=== PATIENT | male | born 1990 | race Caucasian/White ===

== ENCOUNTER 2017-07-30 02:26 | Emergency (ER) | payer OTHER ==
[~2017-07-30] VITALS: Ht 185.4 cm; Wt 90.7 kg
[~2017-07-30 02:26] MED LIST: Cleocin HCl150 MG PO; Ultram50 MG PO
== END 2017-07-30 05:19 | disposition left against medical advice (07) ==
LOC: ER 02:26
DX: K04.7 Periapical abscess without sinus (principal); K02.9 Dental caries, unspecified; F17.210 Nicotine dependence, cigarettes, uncomplicated; Z88.0 Allergy status to penicillin; Z90.89 Acquired absence of other organs; Z79.2 Long term (current) use of antibiotics
CPT/HCPCS: 99282

== ENCOUNTER 2019-10-12 13:48 | Inpatient (IN) | payer OTHER ==
[~2019-10-12] VITALS: Ht 190.5 cm; Wt 90.7 kg
[2019-10-12 14:25] LABS: BASOPHILS ABSOLUTE AUTO 0.05 K/mm3 (0.00-0.23); BASOPHILS PERCENT AUTO 1 % (0-2); EOSINOPHILS ABSOLUTE AUTO 0.04 K/mm3 (0.00-0.68); EOSINOPHILS PERCENT AUTO 1 % (0-6); Hematocrit 50.7 % (37.0-53.0); Hemoglobin 17.6 g/dL (13.5-17.5); IMMATURE GRAN ABSOLUTE AUTO 0.01 K/mm3 (0.00-0.10); IMMATURE GRAN PERCENT AUTO 0 % (0-1); LYMPHOCYTES ABSOLUTE AUTO 1.97 K/mm3 (0.84-5.20); LYMPHOCYTES PERCENT AUTO 24 % (21-46); MONOCYTES ABSOLUTE AUTO 0.83 K/mm3 (0.16-1.47); MONOCYTES PERCENT AUTO 10 % (4-13); Mean Corpuscular HGB 31.5 pg (26.0-34.0); Mean Corpuscular HGB Conc 34.7 g/dL (31.5-36.5); Mean Corpuscular Volume 91 fL (80-100); Mean Platelet Volume 9.8 fL (9.1-12.4); NEUTROPHILS ABSOLUTE AUTO 5.37 K/mm3 (1.96-9.15); NEUTROPHILS PERCENT AUTO 65 % (41-73); Platelet Count 238 K/mm3 (150-400); RDW Coefficient Variation 13.2 % (11.7-14.2); RDW Standard Deviation 44.7 fL (35.1-46.3); Red Blood Cell Count 5.58 M/mm3 (4.30-5.90); White Blood Cell Count 8.27 K/mm3 (4.00-11.30)
[2019-10-12 14:50] LABS: Alanine Aminotransfer (ALT/SGP 254 U/L (12-78); Albumin, Blood 3.9 g/dL (3.4-5.0); Alk Phos 167 U/L (50-136); Anion Gap 8 mmol/L (6-16); Aspartate Aminotrans (AST/SGOT 151 U/L (12-37); Bilirubin, Total 0.3 mg/dL (0.1-1.0); Blood Urea Nitrogen 5 mg/dL (8-24); Bun/Creatinine Ratio 6.2 (12.0-20.0); CO2, Blood 22 mmol/L (21-32); Calcium, Blood 8.8 mg/dL (8.5-10.1); Chloride, Blood 110 mmol/L (98-108); Creatinine, Blood 0.81 mg/dL (0.60-1.20); Globulin, Blood 3.9 g/dL (2.2-4.0); Glomerular Filtration Rate >60 (60-); Glucose, Blood 101 mg/dL (70-99); Potassium, Blood 3.8 mmol/L (3.5-5.5); Sodium, Blood 140 mmol/L (136-145); Total Protein, Blood 7.8 g/dL (6.4-8.2)
--- NOTE | 2019-10-12 18:06 | NUR ---
REPORT RECIEVED FROM INDIO HOLDEN RN. PT ARRIVED TO PCU 1 VIA GURNEY AND WAS ABLE TO AMBULATE TO THE BED. PT IS LETHARGIC, BUT ORIENTED. PT STATES NOW THAT HE IS UP AND MOVING AROUND HIS PAIN HAS INCREASED TO 7/10. I TALKED WITH HIM ABOUT GETTING SETTLED IN AND I WOULD CALL THE MD IF HIS PAIN WAS STILL ELEVATED. HRR. LS CTA, BIOX WNL ON RA. BT HYPOACTIVE, ABD TENDER TO PALPATION.PPP. VS TAKEN, PT IS HYPERTENSIVE. PT ORIENTED TO ROOM AND CALL LIGHT. PT DENIES NEEDS AT THIS TIME. WILL CONTINUE TO MONITOR.
--- NOTE | 2019-10-12 19:10 | NUR ---
PT STATES HIS PAIN IS STILL HIGH. CALL PLACED TO MD, SEE NEW ORDERS. 1 MG DILAUDID GIVEN FOR 10/10 ABD PAIN. PT STATES, " YOU GUYS ALWAYS DO THIS TO ME...MAKE ME WAIT AND THEN MY PAIN GETS OUT OF CONTROL." I TALKED WITH HIM ABOUT ALL THE MEDICATIONS HE IS TAKING AND THE ALCOHOL THAT IS STILL IN HIS SYSTEM, WE ARE WORRIED ABOUT RESPIRATORY DEPRESSION. HE VERBALIZED UNDERSTANDING. PT DENIES OTHER NEEDS AT THIS TIME, CALL LIGHT IN REACH. WILL CONTINUE TO MONITOR.
--- NOTE | 2019-10-12 20:05 | NUR ---
ADAM LIVE BEDSIDE WITH PATIENT; VS TAKEN; ADAM LIVE STATED CAN GIVEN DOSE OF 2MG IV DILAUDID NOW. WILL START IV TORADOL SCHEDULED.
--- NOTE | 2019-10-12 20:28 | NUR ---
PATIENT REPORTS GOOD REULTS WITH 2MG IV DILAUDID. FROM 10 TO A 5; NOW WATCHING TV. VSS.
[2019-10-13 04:07] LABS: BASOPHILS ABSOLUTE AUTO 0.02 K/mm3 (0.00-0.23); BASOPHILS PERCENT AUTO 0 % (0-2); EOSINOPHILS ABSOLUTE AUTO 0.01 K/mm3 (0.00-0.68); EOSINOPHILS PERCENT AUTO 0 % (0-6); Hematocrit 53.6 % (37.0-53.0); IMMATURE GRAN ABSOLUTE AUTO 0.02 K/mm3 (0.00-0.10); IMMATURE GRAN PERCENT AUTO 0 % (0-1); LYMPHOCYTES ABSOLUTE AUTO 0.64 K/mm3 (0.84-5.20); LYMPHOCYTES PERCENT AUTO 7 % (21-46); MONOCYTES ABSOLUTE AUTO 0.75 K/mm3 (0.16-1.47); MONOCYTES PERCENT AUTO 8 % (4-13); Mean Corpuscular HGB Conc 33.6 g/dL (31.5-36.5); Mean Platelet Volume 10.2 fL (9.1-12.4); NEUTROPHILS ABSOLUTE AUTO 8.25 K/mm3 (1.96-9.15); NEUTROPHILS PERCENT AUTO 85 % (41-73); Platelet Count 168 K/mm3 (150-400); RDW Coefficient Variation 13.5 % (11.7-14.2); RDW Standard Deviation 47.8 fL (35.1-46.3); Red Blood Cell Count 5.62 M/mm3 (4.30-5.90); White Blood Cell Count 9.69 K/mm3 (4.00-11.30)
[2019-10-13 04:08] LABS: Mean Corpuscular Volume 95 fL (80-100)
[2019-10-13 04:28] LABS: Alanine Aminotransfer (ALT/SGP 197 U/L (12-78); Albumin, Blood 3.6 g/dL (3.4-5.0); Alk Phos 163 U/L (50-136); Anion Gap 7 mmol/L (6-16); Aspartate Aminotrans (AST/SGOT 87 U/L (12-37); Bilirubin, Total 0.8 mg/dL (0.1-1.0); Blood Urea Nitrogen 4 mg/dL (8-24); Bun/Creatinine Ratio 6.4 (12.0-20.0); CO2, Blood 23 mmol/L (21-32); Calcium, Blood 7.9 mg/dL (8.5-10.1); Chloride, Blood 109 mmol/L (98-108); Creatinine, Blood 0.63 mg/dL (0.60-1.20); Globulin, Blood 3.5 g/dL (2.2-4.0); Glomerular Filtration Rate >60 (60-); Glucose, Blood 90 mg/dL (70-99); Sodium, Blood 139 mmol/L (136-145); Total Protein, Blood 7.1 g/dL (6.4-8.2)
--- NOTE | 2019-10-13 05:51 | NUR ---
ASSUMED CARE OF PATIENT AT APPROXIMATELY 1900 FROM LOU Garvey RN. PATIENT ALERT AND ORIENTED X4; DROWSY AT TIMES. PATIENT REPORTS PAIN IN HIS ABDOMEN AND BACK; MEDICATED PER EMAR. CIWA 8 OR LESS. PATIENT IRRITABLE AT TIMES. ONE ASSIST OUT OF BED TO BATHROOM. PATIENT DENIES NUMBNESS, TINGLING, DIZZINESS OR NAUSEA. NSR/ST ON TELE; OXYGEN SATURATION ABOVE 90% ON ROOM AIR. NPO. PATIENT C/O OF WANTING WATER. PATIENT REPORTS HE HAS BEEN HOSPITALIZED IN [place] AND [place] AND HAS A "IV PAIN PUMP"; REPORTS HE HAS TAKEN "100 MG MORPHINE". IVF INFUSING PER ORDER. PATIENT CURRENTLY RESTING IN BED; CALL LIGHT IN REACH; BED IN LOWEST POSISTION; BED ALARM ON; WILL CONTINUE TO MONITOR AND ASSESS UNTIL END OF SHIFT.
--- NOTE | 2019-10-13 07:02 | NUR ---
Ankur was up to the bathroom, brushing his teeth and the pull over machine operator tech alerted us to his heart rate of 161 bpm. The pt is shaky, and anxious. Also c/o headache. Medicated for pain and CIWA
--- NOTE | 2019-10-13 09:40 | NUR ---
DR CALVERT WAS UPDATED THAT PT'S PAIN IS NOT WELL CONTROLLED WITH 2MG DIALUDID Q2 HOURS, AND IS DEMANDING MEDICATIONS MORE FREQUENTLY. DR CALVERT GAVE V/O FOR DILAUDID DOSE CHANGE TO 2-4MG DIALUDID Q4 HOURS. DR CALVERT MET WITH PT AND HAD A LONG DISCUSSION ABOUT HIS DRINKING AND DISEASE PROGRESSION. PT STS THAT HE HAS NO DESIRE TO "QUIT FOREVER, LIKE I WANT TO BE ABLE TO DRINK" AND STS THAT CURRENTLY HE IS NOT ABLE TO QUIT DRINKING HE LIVES WITH HIS PARENTS AND THEY DRINK. PT IS EDUCATED ABOUT MEDICATION CHANGE AND BECOMES VERBALLY AGGRESSIVE WITH STAFF. PT IS MEDICATED AND REPOSITIONED POST DIALUDID ADMINISTRATION AND PT STS "YOU DON'T KNOW WHAT YOU'RE DOING I DON'T NEED TO SET UP" PT HAS BRIEFLY HAD A DROP IN SPO2 WHILE LYING FLAT, PT REMINDED THAT THIS IS WHY HE WAS REPOSITIONED, PT CONTINUES WITH SLANDEROUS STATEMENTS TOWARDS THIS RN. PT RESTING IN BED WITH SPO2 OF 94%
--- NOTE | 2019-10-13 11:01 | NUR ---
PT IS RESTING WELL IN BED, APPEARS TO BE SLEEPING
--- NOTE | 2019-10-13 12:01 | NUR ---
REPORT TO RAFAT SILVA. PT AWAKENS SPONTANEOUSLY
--- NOTE | 2019-10-13 12:40 | NUR ---
ASSUMED CARE PT ALERT AND ORIENTED AT THIS TIME. PT STATES HE FEELS DROWSY. PAIN TO ABD IS 7/10. HR SINUS TACH 120'S. PT TOLERATING CLEAR LIQUIDS AT THIS TIME. PT EDUCATED TO CALL BEFORE AMBULATING. WILL CONTINUE TO MONITOR CLOSELY.
--- NOTE | 2019-10-13 17:33 | NUR ---
SHIFT SUMMARY PT ALERT AND ORIENTED. PT ANXIOUS AT TIMES. O2 SATS REMAIN ABOVE 90% ON RA. BP STABLE. HR SINUS TACH. PT COMPLAINS OF PAIN IN HIS ABD THIS SHIFT AND MEDICATED PER EMAR. PT ON CLEAR LIQUID DIET. PT ABLE TO AMBULATE WITH SBA. LR INFUSING PER ORESTES. WILL CONTINUE TO MONITOR AND REPORT TO ONCOMING RN. CALL LIGHT IN REACH.
--- NOTE | 2019-10-14 05:37 | NUR ---
shift summary PT SLEEPING IN ROOM COMFORTABLY AT THIS TIME. NO ACUTE CHANGES IN STATUS T/O NIGHT. PT REMAINED PAINFUL AND REQUESTED PAIN MEDS Q4HR ORDERED. RESP EVEN UNLABORED ON RA W/ SATS 87-92%. PT WAS PLACED ON 3L NC O2 DURING NIGHT WHILE SLEEPING TO KEEP SATS >92%. PT REPORTED PAIN MANAGED WITH PAIN MEDS PER EMAR. DENIED OTHER NEEDS. CIWA SCORES 5. CALL LIGHT IN REACH.
[2019-10-14 06:10] LABS: HBSAG SCREEN Negative (Negative); HEP A AB, IGM Negative (Negative); HEP B CORE AB, IGM Negative (Negative); HEP C VIRUS AB <0.1 (0.0-0.9)
--- NOTE | 2019-10-14 07:26 | NUR ---
ASSUMED PATIENT CARE. PATIENT RESTING COMFORTABLY IN BED, CONVERSING WITH NURSING STAFF. NO SIGNS OF ACUTE DISTRESS. WCTM.
--- NOTE | 2019-10-14 12:38 | NUR ---
REPORT GIVEN TO MARIA R SILVA IN MEDICAL.
--- NOTE | 2019-10-14 17:15 | NUR ---
SHIFT SUMMARY. 1245 PT TRANSFERED FROM PCU TO MEDICAL FLOOR RM 301 VIA W/C. REPORT RECIEVED FROM SHIRA WEBB PRIOR TO TRANSFER. PT C/O PAIN, PAIN MANAGED WELL WITH DILAUDID 2MG IV. NO N/V, POOR APPETITE. PT DENIES SOB. CIWA SCORE ONE FOR SMALL HAND TREMORS. NO NEW CHANGES OR CONCERNS.
--- NOTE | 2019-10-15 03:15 | NUR ---
THIS RN NOTIFIED BY BAKER TEST THAT PT WAS HAVING A COUGHING FIT AND THAT PT HR WAS HIGH, TOUCHING THE 190'S AT TIMES. UPON ASSESSMENT, PT HAVING A DRY COUGH AND WAS VERY ANXIOUS. O2 SATS WERE LOW IN THE MID 80'S ON ROOM AIR. PLACED PT ON 2L O2 VIA NC AND INSTRUCTED TO DEEP BREATHE IN THROUGH HIS NOSE TO INCREASE O2 SATS AND TO HELP PROMOTE RELAXATION. O2 BACK TO LOW 90'S ON 2L, TITRATED DOWN TO 1L AT THIS TIME. NOTIFIED DR SOTOMAYOR, RECIEVED ORDER FOR NS AT 125/HR X2 BAGS, ADDITIONAL FENTANYL ORDERS FOR PAIN CONTROL, AND TO GIVE DOSE OF IV ATIVAN THAT IS ALREADY ON PT'S EMAR FOR CIWA PROTOCOL. ALSO RECIEVED ORDER FOR TESSALON FOR COUGH. HR BACK DOWN TO 120-130'S WHICH HAS BEEN THE RANGE SINCE ADMIT, BUT HR DOES CLIMB WHEN PT BEGINS COUGHING. PT COUGHS ENOUGH AT TIMES THAT HE FEELS HE MUST VOMIT. PLACED ON FLUIDS AND GIVEN 1MG IV ATIVAN WELL TESSALON. WILL CONTINUE TO MONITOR.
--- NOTE | 2019-10-15 05:22 | NUR ---
KELLY MACHINE OPERATOR SUMMARY PT AAOX4 AND PLEASANT. INDEPENDENT IN ROOM. PT HAD SEVERAL COUGHING FITS THROUGHOUT THE NIGHT THAT WOULD INCREASE HR. PT WOULD BECOME ANXIOUS WITH COUGHING AND HR WOULD CLIMB UP TO 190'S AT TIMES FOR A FEW SECONDS ACCORDING TO THE CONT PULSE OX MACHINE. NOTIFIED DR SOTOMAYOR, SEE PREVIOUS NOTE FOR INTERVENTIONS PERFORMED. PT WAS ABLE TO SETTLE DOWN AND WAS NOT COUGHING MUCH BUT HR WAS STILL SUSTAINING 140'S AND PT WAS ON 3L O2 TO MAINTAIN O2 AT 90-91%. PT PLACED ON TELE AND IV LOPRESSOR [address] SOTOMAYOR, HR NOW AVG 110-120. PT REMAINS ON 3L O2 AND IS RESTING AT THIS TIME. CXR ORDERED FOR THIS AM PER MD ORDER. PT CONTINUES TO REQUEST IV PAIN MEDICATIONS EVERY 3-4 HOURS. OTHER VSS, WILL CONTINUE TO MONITOR.
[2019-10-15 12:09] LABS: BASOPHILS ABSOLUTE AUTO 0.03 K/mm3 (0.00-0.23); BASOPHILS PERCENT AUTO 0 % (0-2); EOSINOPHILS ABSOLUTE AUTO 0.03 K/mm3 (0.00-0.68); EOSINOPHILS PERCENT AUTO 0 % (0-6); Hematocrit 39.7 % (37.0-53.0); Hemoglobin 13.3 g/dL (13.5-17.5); IMMATURE GRAN ABSOLUTE AUTO 0.03 K/mm3 (0.00-0.10); IMMATURE GRAN PERCENT AUTO 0 % (0-1); LYMPHOCYTES ABSOLUTE AUTO 0.67 K/mm3 (0.84-5.20); LYMPHOCYTES PERCENT AUTO 7 % (21-46); MONOCYTES ABSOLUTE AUTO 0.58 K/mm3 (0.16-1.47); MONOCYTES PERCENT AUTO 6 % (4-13); Mean Corpuscular HGB Conc 33.5 g/dL (31.5-36.5); Mean Corpuscular Volume 95 fL (80-100); Mean Platelet Volume 11.1 fL (9.1-12.4); NEUTROPHILS ABSOLUTE AUTO 8.82 K/mm3 (1.96-9.15); NEUTROPHILS PERCENT AUTO 87 % (41-73); Platelet Count 70 K/mm3 (150-400); RDW Coefficient Variation 13.4 % (11.7-14.2); RDW Standard Deviation 47.3 fL (35.1-46.3); Red Blood Cell Count 4.16 M/mm3 (4.30-5.90); White Blood Cell Count 10.16 K/mm3 (4.00-11.30)
--- NOTE | 2019-10-15 17:03 | NUR ---
SHIFT SUMMARY. PT CONTINUES WITH CONSTANT ABD PAIN, PAIN MANAGED WITH CURRENT ORDERS, DILAUDID TITRATED DOWN FROM 2MG TO 1MG. NO N/V. TOLERATING SMALL AMOUNTS OF CLEAR LIQUIDS. O2 TITRATED DOWN TO RA TODAY. NO OTHER CHANGES OR CONCERNS.
--- NOTE | 2019-10-16 04:36 | NUR ---
ELECTRIC MOTOR REPAIR SUPERVISOR SUMMARY NO ACUTE CHANGES THIS SHIFT. PT AAOX4 AND INDEPENDENT IN ROOM. HAS BEEN ON ROOM AIR THROUGH THE NIGHT WITH O2 SATS 90-94%. ABD PAIN WELL MANAGED WITH 1MG IV DILAUDID Q4H. LOW GRADE TEMP OFF/ON THROUGH THE NIGHT, TYLENOL GIVEN. PT RECIEVED ATIVAN 1 MG FOR A CIWA OF 8, PT HAD AN ELEVATED BP WITH SBP 160'S, WAS VERY ANXIOUS, AND HAD SOME MINOR HAND TREMORS. PT REMAINS TACHY WITH AVG HR 120'S. WILL CONTINUE TO MONITOR.
[2019-10-16 05:45] LABS: BASOPHILS ABSOLUTE AUTO 0.02 K/mm3 (0.00-0.23); BASOPHILS PERCENT AUTO 0 % (0-2); EOSINOPHILS ABSOLUTE AUTO 0.07 K/mm3 (0.00-0.68); EOSINOPHILS PERCENT AUTO 1 % (0-6); Hematocrit 38.4 % (37.0-53.0); Hemoglobin 13.3 g/dL (13.5-17.5); IMMATURE GRAN ABSOLUTE AUTO 0.04 K/mm3 (0.00-0.10); IMMATURE GRAN PERCENT AUTO 1 % (0-1); LYMPHOCYTES ABSOLUTE AUTO 0.46 K/mm3 (0.84-5.20); LYMPHOCYTES PERCENT AUTO 7 % (21-46); MONOCYTES ABSOLUTE AUTO 0.64 K/mm3 (0.16-1.47); MONOCYTES PERCENT AUTO 10 % (4-13); Mean Corpuscular HGB 32.3 pg (26.0-34.0); Mean Corpuscular HGB Conc 34.6 g/dL (31.5-36.5); Mean Corpuscular Volume 93 fL (80-100); Mean Platelet Volume 10.8 fL (9.1-12.4); NEUTROPHILS ABSOLUTE AUTO 5.13 K/mm3 (1.96-9.15); NEUTROPHILS PERCENT AUTO 81 % (41-73); Platelet Count 91 K/mm3 (150-400); RDW Coefficient Variation 13.2 % (11.7-14.2); RDW Standard Deviation 45.1 fL (35.1-46.3); Red Blood Cell Count 4.12 M/mm3 (4.30-5.90); White Blood Cell Count 6.36 K/mm3 (4.00-11.30)
[2019-10-16 06:04] LABS: Alanine Aminotransfer (ALT/SGP 65 U/L (12-78); Albumin, Blood 2.4 g/dL (3.4-5.0); Albumin/Globulin Ratio 0.7 (0.8-1.8); Alk Phos 98 U/L (50-136); Anion Gap 6 mmol/L (6-16); Aspartate Aminotrans (AST/SGOT 46 U/L (12-37); Bilirubin, Total 0.7 mg/dL (0.1-1.0); Blood Urea Nitrogen 7 mg/dL (8-24); Bun/Creatinine Ratio 11.4 (12.0-20.0); CO2, Blood 25 mmol/L (21-32); Calcium, Blood 7.6 mg/dL (8.5-10.1); Chloride, Blood 101 mmol/L (98-108); Creatinine, Blood 0.61 mg/dL (0.60-1.20); Globulin, Blood 3.3 g/dL (2.2-4.0); Glomerular Filtration Rate >60 (60-); Glucose, Blood 115 mg/dL (70-99); Potassium, Blood 2.9 mmol/L (3.5-5.5); Sodium, Blood 132 mmol/L (136-145); Total Protein, Blood 5.7 g/dL (6.4-8.2)
--- NOTE | 2019-10-16 18:21 | NUR ---
SHIFT SUMMARY. PT CONTINUES WITH CONSTANT ABD PAIN, PAIN HAS BEEN MANAGED WELL WITH CURRENT ORDERS. NO N/V OR SOB. CT ABD COMPLETED THIS AFTERNOON. PT CONTINUES WITH DIARRHEA DURING THIS SHIFT, DR. CALVERT NOTIFIED THIS AM, HE REPORTED THAT HE WANTED TO SEE CT RESULTS PRIOR TO DETERMINING TREATMENT FOR DIARRHEA. 1814 CT RESULTS OBSERVED, DR. CALVERT NOTIFIED, HE REPORTED THAT HE WOULD REVIEW THE RESULTS. PT NOTIFIED.
[2019-10-16 22:42] LABS: Adenovirus F 40/41 Not Detected (NOT DETECT); Astrovirus Not Detected (NOT DETECT); Campylobacter Sp Not Detected (NOT DETECT); Cryptosporidium Not Detected (NOT DETECT); Cyclospora Cayetanensis Not Detected (NOT DETECT); E. Coli O157 Not Detected (NOT DETECT); Entamoeba Histolytica Not Detected (NOT DETECT); Enteroaggregative E. coli-EAEC Not Detected (NOT DETECT); Enteropathogenic E. coli-EPEC Not Detected (NOT DETECT); Enterotoxigenic E. coli-ETEC Not Detected (NOT DETECT); Giardia Lamblia Not Detected (NOT DETECT); Norovirus GI/GII Not Detected (NOT DETECT); Plesiomonas Shigelloides Not Detected (NOT DETECT); Rotavirus A Not Detected (NOT DETECT); Salmonella Sp Not Detected (NOT DETECT); Sapovirus Not Detected (NOT DETECT); Shiga Toxin-prod E. coli-STEC Not Detected (NOT DETECT); Shigella/Enteroin E. coli-EIEC Not Detected (NOT DETECT); Vibrio Cholerae Not Detected (NOT DETECT); Vibrio Sp Not Detected (NOT DETECT); Yersinia Enterocolitica Not Detected (NOT DETECT)
--- NOTE | 2019-10-17 05:03 | NUR ---
MOVING PICTURE PRODUCER SUMMARY PT AAOX4 AND INDEPENDENT IN ROOM. DR CALVERT IN TO SEE PT AT START OF SHIFT, ORDERED GI PANEL. GI PANEL POSITIVE FOR C DIFF, HOWEVER C DIFF TOX STILL PENDING AT THIS TIME. PT PLACED IN CONTACT ISOLATION. CONTINUING TO MEDICATE PT Q4H WITH 1MG DILAUDID IV. DR CALVERT GAVE SAID OK TO GIVE PT SOME BREAD, PT HAD TWO SLICES AND TOLERATED THEM WELL, NO N/V AFTER. O2 SATS >92% THROUGH THE NIGHT ON RA. AVG HR IMPROVING, TYPICALLY 100-109 THROUGH THE NIGHT. WILL CONTINUE TO MONITOR.
[2019-10-17 06:09] LABS: BASOPHILS ABSOLUTE AUTO 0.03 K/mm3 (0.00-0.23); BASOPHILS PERCENT AUTO 0 % (0-2); EOSINOPHILS ABSOLUTE AUTO 0.11 K/mm3 (0.00-0.68); EOSINOPHILS PERCENT AUTO 2 % (0-6); Hemoglobin 13.2 g/dL (13.5-17.5); IMMATURE GRAN ABSOLUTE AUTO 0.04 K/mm3 (0.00-0.10); IMMATURE GRAN PERCENT AUTO 1 % (0-1); LYMPHOCYTES ABSOLUTE AUTO 0.96 K/mm3 (0.84-5.20); LYMPHOCYTES PERCENT AUTO 14 % (21-46); MONOCYTES ABSOLUTE AUTO 1.15 K/mm3 (0.16-1.47); MONOCYTES PERCENT AUTO 16 % (4-13); Mean Corpuscular HGB Conc 34.7 g/dL (31.5-36.5); Mean Corpuscular Volume 92 fL (80-100); Mean Platelet Volume 10.7 fL (9.1-12.4); NEUTROPHILS ABSOLUTE AUTO 4.78 K/mm3 (1.96-9.15); NEUTROPHILS PERCENT AUTO 68 % (41-73); Platelet Count 119 K/mm3 (150-400); RDW Coefficient Variation 13.2 % (11.7-14.2); RDW Standard Deviation 44.7 fL (35.1-46.3); Red Blood Cell Count 4.12 M/mm3 (4.30-5.90); White Blood Cell Count 7.07 K/mm3 (4.00-11.30)
[2019-10-17 06:19] LABS: Alanine Aminotransfer (ALT/SGP 62 U/L (12-78); Albumin, Blood 2.5 g/dL (3.4-5.0); Albumin/Globulin Ratio 0.7 (0.8-1.8); Alk Phos 81 U/L (50-136); Anion Gap 7 mmol/L (6-16); Aspartate Aminotrans (AST/SGOT 42 U/L (12-37); Bilirubin, Total 0.7 mg/dL (0.1-1.0); Blood Urea Nitrogen 4 mg/dL (8-24); Bun/Creatinine Ratio 6.5 (12.0-20.0); CO2, Blood 25 mmol/L (21-32); Calcium, Blood 7.7 mg/dL (8.5-10.1); Chloride, Blood 102 mmol/L (98-108); Creatinine, Blood 0.62 mg/dL (0.60-1.20); Globulin, Blood 3.6 g/dL (2.2-4.0); Glomerular Filtration Rate >60 (60-); Glucose, Blood 96 mg/dL (70-99); Potassium, Blood 2.8 mmol/L (3.5-5.5); Sodium, Blood 134 mmol/L (136-145); Total Protein, Blood 6.1 g/dL (6.4-8.2)
--- NOTE | 2019-10-18 03:19 | NUR ---
SHIFT SUMMARY PATIENT HAD NO ACUTE CHANGES OBSERVED. AXOX 4 AND INDEPENDENT IN ROOM. TAKES MEDICATION WHOLE WITH WATER. LR FINISHED INFUSING AT 100 mL/HR. IV POTASSIUM INFUSED. PIV REMAINS INTACT. FLORIST REPORTS ST100. PATIENT REPORTS ABDOMINAL PAIN AND RECEIVED IV DILAUDID Q4 PER EMAR. BP WNL. DENIES SOB AND N/V. CONTACT PRECAUTIONS. COOPERATIVE WITH CARE. CALL LIGHT IN REACH. BED IN LOWEST POSITION. WILL CONTINUE TO MONITOR UNTIL DAY SHIFT NURSE ASSUMES CARE.
[2019-10-18 05:07] LABS: BASOPHILS ABSOLUTE AUTO 0.04 K/mm3 (0.00-0.23); BASOPHILS PERCENT AUTO 1 % (0-2); EOSINOPHILS PERCENT AUTO 3 % (0-6); Hematocrit 40.1 % (37.0-53.0); Hemoglobin 13.9 g/dL (13.5-17.5); IMMATURE GRAN ABSOLUTE AUTO 0.05 K/mm3 (0.00-0.10); IMMATURE GRAN PERCENT AUTO 1 % (0-1); LYMPHOCYTES ABSOLUTE AUTO 0.99 K/mm3 (0.84-5.20); LYMPHOCYTES PERCENT AUTO 13 % (21-46); MONOCYTES ABSOLUTE AUTO 1.23 K/mm3 (0.16-1.47); MONOCYTES PERCENT AUTO 16 % (4-13); Mean Corpuscular HGB Conc 34.7 g/dL (31.5-36.5); Mean Corpuscular Volume 92 fL (80-100); Mean Platelet Volume 10.1 fL (9.1-12.4); NEUTROPHILS ABSOLUTE AUTO 4.97 K/mm3 (1.96-9.15); NEUTROPHILS PERCENT AUTO 67 % (41-73); Platelet Count 184 K/mm3 (150-400); RDW Coefficient Variation 12.9 % (11.7-14.2); RDW Standard Deviation 44.2 fL (35.1-46.3); Red Blood Cell Count 4.34 M/mm3 (4.30-5.90); White Blood Cell Count 7.48 K/mm3 (4.00-11.30)
[2019-10-18 05:30] LABS: Anion Gap 8 mmol/L (6-16); Blood Urea Nitrogen 5 mg/dL (8-24); CO2, Blood 24 mmol/L (21-32); Calcium, Blood 8.2 mg/dL (8.5-10.1); Chloride, Blood 102 mmol/L (98-108); Creatinine, Blood 0.56 mg/dL (0.60-1.20); Glomerular Filtration Rate >60 (60-); Glucose, Blood 113 mg/dL (70-99); Magnesium, Blood 2.3 mg/dL (1.6-2.4); Potassium, Blood 2.8 mmol/L (3.5-5.5); Sodium, Blood 134 mmol/L (136-145)
--- NOTE | 2019-10-18 17:17 | NUR ---
SHIFT SUMMARY PATIENT MEDICATED X3 FOR PAIN THIS SHIFT. PATIENT REPORTS HIS PAIN IS BETTER TODAY. PATIENT DENIES NAUSEA AND SHORTNESS OF BREATH. PATIENT UP INDEPENDENT IN ROOM. PATIENT WATCHING TV AND UP IN ROOM TODAY. CALL LIGHT IN REACH.
--- NOTE | 2019-10-19 03:58 | NUR ---
SHIFT SUMMARY ADMITTED FOR PANCREATITIS. FULL CODE. CONTACT PRECAUTIONS FOR COLONIZED CDIFF. PANCREATIC TAIL FOUND TO HAVE NECROSIS. AWAITING BLOOD CULTURES. IV DILAUDID IN EMAR, PT DOES FREQUENTLY REQUEST THIS PAIN MED. TELEMETRY IS MONITORING: TACHY @ 100 BPM. CONTINUOUS PULSE OX. INDEPENDENT IN ROOM, LOW FAT DIET. HX: COLITIS, PANCREATITIS, ETOH, HEPATIC STEATOSIS, HEAVY SMOKER, ANXIETY, HIGH NARCOTICS TOLERANCE. DR BOYKIN IS CONSULT, NOT RECOMMENDING SURGERY AT THIS TIME. ORAL VANCO FOR CDIFF IN EMAR. NO NEW CONCERNS THIS SHIFT.
[2019-10-19 05:39] LABS: Anion Gap 6 mmol/L (6-16); Blood Urea Nitrogen 4 mg/dL (8-24); Bun/Creatinine Ratio 8.2 (12.0-20.0); CO2, Blood 25 mmol/L (21-32); Calcium, Blood 8.1 mg/dL (8.5-10.1); Chloride, Blood 103 mmol/L (98-108); Creatinine, Blood 0.49 mg/dL (0.60-1.20); Glomerular Filtration Rate >60 (60-); Glucose, Blood 96 mg/dL (70-99); Magnesium, Blood 2.2 mg/dL (1.6-2.4); Potassium, Blood 3.3 mmol/L (3.5-5.5); Sodium, Blood 134 mmol/L (136-145)
--- NOTE | 2019-10-19 16:15 | NUR ---
SHIFT SUMMARY PT A&0, PT HAS BEEN STABLE THIS SHIFT,PT IS ON TELEMETRY, PT HAS 20G IN RIGHT HAND THAT FLUSHES WELL. PT HAS BEEN MEDICATED X2 FOR PAIN THIS SHIFT FOR ABDOMINAL PAIN, PT STATES "PIN PRICKING PAIN IN THE SHAPE OF A HORESE SHOE IN MY STOMACH". PT HAS TOLORATED REG DIET THIS SHIFT. PT IS INDEPENDENT IN ROOM. CALL LIGHT WITH IN REACH, WILL REPORT TO ONCOMING SHIFT.
--- NOTE | 2019-10-20 04:33 | NUR ---
SHIFT SUMMARY ADMITTED FOR PANCREATITIS/COLITIS. FULL CODE. FOUND TO HAVE CDIFF COLONIZATION - CONTACT PRECAUTIONS. MEDICATED FREQUENTLY WITH IV PAIN MEDS THROUGHOUT SHIFT. HE IS A&O X4, LOW FAT DIET, RA, INDEPENDENT IN ROOM. TELEMETRY: NSR @ 84 BPM. VANCO IS SCHEDULED IN EMAR. CONSULT DEEER RECOMMENDS CONTINUE TO MONITOR. SOME PANCREATIC TAIL NECROSIS FOUND, BUT NO EVIDENCE OF INFECTION YET ALTHOUGH THE PT IS AT RISK. HX: ETOH, PANCREATITIS, DAILY HEAVY SMOKER, ANXIETY, HEPATIC STEATOSIS.
[2019-10-20 06:06] LABS: Anion Gap 9 mmol/L (6-16); Blood Urea Nitrogen 6 mg/dL (8-24); Bun/Creatinine Ratio 11.2 (12.0-20.0); CO2, Blood 23 mmol/L (21-32); Calcium, Blood 8.2 mg/dL (8.5-10.1); Chloride, Blood 102 mmol/L (98-108); Creatinine, Blood 0.54 mg/dL (0.60-1.20); Glomerular Filtration Rate >60 (60-); Glucose, Blood 128 mg/dL (70-99); Potassium, Blood 3.4 mmol/L (3.5-5.5); Sodium, Blood 134 mmol/L (136-145)
[2019-10-20] MEDS ORDERED: GABA300 PO (11:54)
[2019-10-20] MEDS ORDERED: Culturelle1 CAP PO (11:55)
[2019-10-20] MEDS ORDERED: NICO21TP TOP (11:55)
[2019-10-20] MEDS ORDERED: POTCHL20ER PO (11:56)
[2019-10-20] MEDS ORDERED: VANCOCIN HCL125 MG PO (12:10)
--- NOTE | 2019-10-20 13:49 | NUR ---
DISCHARGE SUMMARY PATIENT IS PLEASANT, ALERT AND ORIENTED. IV REMOVED. ALL DISCHARGE INSTRUCTIONS GONE OVER. SPOKE WITH PATIENT ABOUT HIS MEDICATIONS. WALKED OUT BY SCOOPER.
== END 2019-10-20 13:17 | disposition home or self-care (01) | DRG 439 ==
LOC: ER 13:48 → PCU 13:49 → MEDS 10-13 12:34 → PCU 10-13 12:35 → MEDS 10-14 12:45 → ENPENDDIS 10-20 10:00 → MEDS 10-20 13:17
PROVIDERS: Emergency Medicine; Hospitalist; Internal Medicine; Nurse Practitioner Acute Care; ADMIT Internal Medicine
DX: K85.20 Alcohol induced acute pancreatitis without necrosis or infection (principal); R65.10 Systemic inflammatory response syndrome (SIRS) of non-infectious origin without acute organ dysfunction; J98.11 Atelectasis; F17.210 Nicotine dependence, cigarettes, uncomplicated; R19.7 Diarrhea, unspecified; R09.02 Hypoxemia; Y90.7 Blood alcohol level of 200-239 mg/100 ml; E87.6 Hypokalemia; F10.20 Alcohol dependence, uncomplicated
CPT/HCPCS: 0097U; 36415; 71045; 74150; 74177; 80048; 80053; 80074; 83690; 83735; 84132; 85025; 87040; 87324; 94762; 96361; 96365; 96366; 96372; 96374; 96375; 96376; 99284-25; A9270; G0378; G0480; J1170; J1650; J1885; J2060; J2185; J2405; J2550; J3411; J3475; J3480; J7030; J7042; J7050; J7120; Q9967